=== PATIENT | male | born 1955 | race Caucasian/White ===

== ENCOUNTER 2022-03-18 13:57 | Emergency (ER) | payer OTHER ==
[~2022-03-18] VITALS: Ht 170.2 cm; Wt 67.1 kg
[2022-03-18 13:57] VITALS: BP_SYST 167
--- NOTE | 2022-03-18 13:57 | NUR ---
BROUGHT IN BY [facility], PLACED IN BED #5 AND TRIAGED. REPORT GIVEN TO TISH
--- NOTE | 2022-03-18 13:57 | NUR ---
TAKEN TO RADIOLOGY VIA [facility] FOR TESTING.
--- NOTE | 2022-03-18 13:58 | NUR ---
CODE STROKE INITIATED
--- NOTE | 2022-03-18 14:01 | NUR ---
DR MOORE AT BEDSIDE FOR EVALUATION
--- NOTE | 2022-03-18 14:02 | NUR ---
DR MOORE STATES NOT CLINICALLY NECESSARY FOR TELE NEURO
[2022-03-18 14:30] LABS: BASOPHILS % (AUTO) 0.8 % (0.0-2.0); EOSINOPHILS # (AUTO) 0.2 K/uL (0.0-0.4); EOSINOPHILS % (AUTO) 4.3 % (0.0-4.0); HEMOGLOBIN 15.4 g/dL (14.0-18.0); LYMPHOCYTES % (AUTO) 35.6 % (20.5-51.5); MEAN CORPUSCULAR HEMOGLOBIN 29 pg (27-31); MEAN CORPUSCULAR HGB CONC 34 % (32-36); MEAN CORPUSCULAR VOLUME 85 fL (79.0-98.0); MONOCYTES # (AUTO) 0.7 K/uL (0.0-1.0); MONOCYTES % (AUTO) 12.4 % (1.7-9.3); NEUTROPHILS # (AUTO) 2.6 K/uL (1.8-7.7); NEUTROPHILS % (AUTO) 46.9 % (40.0-70.0); PLATELET COUNT (AUTO) 224 K/uL (130-430); RED BLOOD CELL COUNT(AUTO) 5.39 MIL/uL (4.2-6.2); WHITE BLOOD COUNT (AUTO) 5.5 K/uL (4.8-10.8)
[2022-03-18 14:46] LABS: CALCIUM 8.7 mg/dL (8.4-11.0); CREATININE 1.12 mg/dL (0.55-1.30); POTASSIUM 4.2 mmol/L (3.5-5.1)
[2022-03-18 14:52] LABS: ALBUMIN 3.3 g/dL (3.4-4.8)
[2022-03-18 14:53] LABS: PROTHROMBIN TIME 10.2 SECS (9.5-12.5)
[2022-03-18] MEDS ORDERED: IOHEXOL 350 mgI/mL, 150 ML INFUS..BTL IV ONE (15:03)
[2022-03-18] MEDS ORDERED: ASPIRIN 325 MG TABLET PO ONE (15:15)
--- NOTE | 2022-03-18 15:25 | NUR ---
[facility] called back to speak to Dr. Juarez regarding pt status.
--- NOTE | 2022-03-18 15:31 | NUR ---
[facility] AUTH #: [id number] PER [facility]AD SUAZO STATED THEY WILL ATTEMPT TO PLACE PT.
--- NOTE | 2022-03-18 16:50 | NUR ---
PT BIBA WITH C/C OF POSSIBLE CVA. REPORTS PT LAST KNOWN WELL TIME WAS APPROXIMATELY 2300 03/17/22. STATES PT SLEPT LATE TILL 1300 TODAY, WHEN GETTING OUT OF BED PT NOTED DRAGGING LEFT LEG. STATES PT HAD DISCOORDINATION AND WAS UNABLE TO TURN THE KITCHEN FAUCET KNOB. ON ARRIVAL TO ED CODE STROKE WAS CALLED, DR. BORDEN ASSESSED PT AND PT HAD RESOLUTION OF SYMPTOMS WITH [facility] SCORE OF 0. AT BEDSIDE. NOW REPORTS PT DOES NOT APPEAR TO BE NORMAL. PT WITH SLIGHT LEFT ARM DRIFT AND DISCOORDINATION OF LEFT UPPER EXTREMITY, SPEECH NORMAL WITH NO DYSPHAGIA BUT PT SLOW TO RESPOND. INFORMED DR. BORDEN IMMEDIATELY AND PT REASSESSED. DR. BORDEN NOW SCORES [facility] OF 3. NEURO TELE MEDICINE PAGED AND AWAITING TO BE ASSESSED BY NEUROLOGIST. VSS, AFEBRILE. CONT AT BEDSIDE. WILL CONT TO MONITOR CLOSELY.
--- NOTE | 2022-03-18 16:57 | NUR ---
Dr. Waterman, [facility] Doc, called back to speak to Dr. Juarez regarding pt status.
--- NOTE | 2022-03-18 17:55 | NUR ---
TRANSFER INFORMATION [facility] ACCEPTING DR IS Dale PHILLIPS INDUSTRIAL INSULATOR TIME IS 183 [facility] # IS [phone]
--- NOTE | 2022-03-18 18:11 | NUR ---
PT SEEN BY DR. JACOB NEURO TELE. NO NEW ORDERS RECEIVED. PT CLEARED FOR TRANSFER TO [facility]. PT TO TRANSFER ER TO ER. PT'S MADE AWARE. REPORT CALLED AT TO TIERA DEVI. WAITING FOR AMBULANCE TO TRANSFER PT.
--- NOTE | 2022-03-18 19:25 | NUR ---
PT AT 1855 STARTED TO EXHIBIT WORSENING STROKE LIKE SYMPTOMS WITH INCREASED LEFT SIDE WEAKNESS AND LEFT FACIAL DROOP WITH SLURRED SPEECH. DR. MEEKS INFORMED RIGHT AWAY AND ASSESSED PT WITH AT . DR. Burks WANTED TO HAVE PT TRANSFERED BY [facility] TO [place] BUT NONE AVAILABLE. AMBULANCE STILL HAS NOT ARRIVED TO TRANSFER PT TO [facility] YET. CREATIVE SPECIALIST CALLED TO [place] [facility] [place] TO [place] BACK WITH [facility] ON [address] TIME[address] DR. MEEKS SPOKE WITH NEUROLOGIST AND STILL NO TPA IS RECOMMENDED. INFORMED NOW THAT [place] IS REFUSING PT. RUTH RN TO RESUME CARE AND MADE AWARE OF THE ABOVE.
--- NOTE | 2022-03-18 19:30 | NUR ---
received report from Huseyin/RN, pt a&o x4, verbal, with slight slurred speech, Lt side facial droop, LT side weakness, unable to lift Lt arm & Lt leg. spouse at bedside, no sob/ distress, no c/o pain at this time. Hx. HTN, Eczema.
[2022-03-18] MEDS ORDERED: ALTEPLASE 100 MG VIAL IVP ONE (19:45)
[2022-03-18] MEDS ORDERED: ALTEPLASE 100 MG VIAL IV ONE (19:45)
--- NOTE | 2022-03-18 20:17 | NUR ---
started TPA (Altapase) per ER MD Dr. Jackson order. vs [id number] started. [facility] charted as per protocol.
--- NOTE | 2022-03-18 21:00 | NUR ---
gave report to Josee/RN from ambulance. pt a&O x4, verbal, able to move Lt arm & legs. no facial droop seen, still running TPA per order & protocol. IV peripheral line on RAC G-22, intact, no s/sx of infiltration.
--- NOTE | 2022-03-18 21:27 | NUR ---
called [facility] spoke with Berenice. gave report. no further needs.
[2022-03-18 21:30] VITALS: BP_SYST 131
--- NOTE | 2022-03-18 21:30 | NUR ---
pt left via [facility] ambulance with spouse, RN & EMT, pt a&o x4, verbal, ambulation not observed, no sob/ distress, no c/o pain at this time, IV peripheral line intact & no s/sx of infiltration. able to move all 4 extremities, no facial droop seen. transfer via gurney to [facility] ER.
== END 2022-03-18 21:30 | disposition short-term general hospital (02) ==
LOC: SED 13:57
DX: I63.9 Cerebral infarction, unspecified (principal); R41.4 Neurologic neglect syndrome; R20.2 Paresthesia of skin; R29.810 Facial weakness; I10 Essential (primary) hypertension; Z88.8 Allergy status to other drugs, medicaments and biological substances; Z79.899 Other long term (current) drug therapy; Z20.822 Contact with and (suspected) exposure to COVID-19
CPT/HCPCS: 99291; 70450; 96374; 71045; 87426; 80053; 85025; 85610; 85730; 86886; 86900; 86901; 84484; 36415; 93005; 70496; 70498; 76376; J2997; Q9967